=== PATIENT | female | born 1980 | race Caucasian/White ===

== ENCOUNTER 2017-08-21 11:53 | Emergency (ER) | payer OTHER ==
--- NOTE | 2017-08-21 12:23 | UC ---
Cardiac HPI - HPI Summary HPI Summary: 36 yrr old white female w/ h/o PEwho drove herself to our site d/t severe CP. She was en route to [place] from [place] and developed severe mid sternal chest pain that wprsened and she stopped at . Pain radiates into her back and going into abdomen. She vomited on herself in transit. 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 reports h/o renal embolization in 2013. -she reports that PEs were in 2003 and d/t unknown dx of tubular sclerosis in combination with control. -she denies being as she has mirena IUD. -denies calf tenderness and swelling - History of Current Complaint Chief Complaint: UCChestPain Stated Complaint: CHEST PAIN Time Seen by Provider: 08/21/17 12:09 Hx Last Menstrual Period: IUD Pain Intensity: 4 - Allergy/Home Medications Allergies/Adverse Reactions: Allergies Allergy/AdvReac Type Severity Reaction Status Date / Time hydromorphone [From Dilaudid] Allergy Unknown Verified 08/21/17 11:58 Reaction Details Penicillins Allergy Rash Verified 08/21/17 11:58 shellfish derived Allergy Anaphylatic Verified 08/21/17 11:58 Shock Home Medications: Home Medications ALPRAZolam [Alprazolam] 1 tab PO DAILY PRN 08/21/17 [History Confirmed 08/21/17] Everolimus [Afinitor] 5 mg PO DAILY 08/21/17 [History Confirmed 08/21/17] Lisinopril 1 tab PO DAILY 08/21/17 [History Confirmed 08/21/17] Rosuvastatin Calcium [Crestor] 1 tab PO DAILY 08/21/17 [History Confirmed ] busPIRone TAB* [Buspar TAB*] 7.5 mg PO DAILY 08/21/17 [History Confirmed ] PMH/Surg Hx/FS Hx/Imm Hx Previously Healthy: No - Tubular sclerosis, b/l angiomyolipomas. - Surgical History Surgical History: Yes Surgery Procedure, Year, and Place: Gallbladder; Appedectomy; Lap Emobolization of Kidney - Family History Known Family History: Positive: Other - denies fhx PEs - Social History Alcohol Use: Weekly Substance Use Type: None Smoking Status (MU): Light Every Day Tobacco Smoker Amount Used/How Often: 3-4cig/day Review of Systems Constitutional: Negative Skin: Negative Eyes: Negative ENT: Negative Respiratory: Negative Cardiovascular: Chest Pain - radiate to back Gastrointestinal: Abdominal Pain, Diarrhea Genitourinary: Negative Motor: Negative Neurovascular: Negative Musculoskeletal: Negative Neurological: Negative Psychological: Negative Is Patient Immunocompromised?: No All Other Systems Reviewed And Are Negative: Yes Physical Exam Triage Information Reviewed: Yes Appearance: Pain Distress - Pt is brought from waiting room in wheelchair. she is breathing heavily and moaning in pain and crying. Vital Signs: Initial Vital Signs Temp 97.8 F 08/21/17 12:02 Pulse 96 08/21/17 12:02 Resp 18 08/21/17 12:02 BP 179/121 08/21/17 12: Pulse Ox 100 08/21/17 12:02 Vital Signs Reviewed: Yes Eye Exam: Normal ENT Exam: Normal ENT: Positive: Pharynx normal Dental Exam: Normal Neck exam: Normal Neck: Positive: Supple, Nontender, No Lymphadenopathy Respiratory: Positive: Lungs clear, Normal breath sounds, Respiratory distress - breathing rapidly and heavily. Negative: Crackles, Rhonchi, Stridor, Wheezing Cardiovascular Exam: Normal Cardiovascular: Positive: RRR, No Murmur, Pulses Normal Abdomen Description: Positive: Soft, Other: - diffuse tenderness over entire abdomen, even resting the noyola of the stethescope on her abdomen made her wince in pain. exam is difficult due to cooperation. But I do not feel pulsatile mass. not rigd. soft. Bowel Sounds: Positive: Present Musculoskeletal Exam: Normal Neurological Exam: Normal Psychological Exam: Normal Skin Exam: Normal - Assessment/Plan Course Of Treatment: EKG - somewhat poor tracing. NSR, nml axis, no acute changes. Recommend pt go to ER based on history of PEs and severity of pain and risk of life thretening PEs & dissedction. She became very tearful when I receommended calling 911 to take her to the ER. At that point her breathing became more controlled and she stated that her pain is getting better and now and is down to 4/10 from 12/28. -IV hep lock started. -ASA 324mgs chewable given after s/w Yanique Rogel NP. -Pt reluctant to go to ER. She got off of the ambulance stretcher refusing to go. I spoke with her and discussed that she has tounderstand her risks of potential PE and aortic dissection that could both lead to severe complciations, permanent disablity, resp failure, inablity to work and potential . Witnesses were 3 ambulance staff and Valarie Monroe, GLADIS. she then agrees to go although she is clearly upset and prefers not to . I s/w Yanique Rogel ACCOUNTS COLLECTOR at [facility] (closest appropriate facility) who accepts pt. Notes and EKG will be faxed. - Differential Diagnoses - Chest Pain Differential Diagnosis/HQI/PQRI: Acute MS, ACS, Angina, Aortic Aneurysm, GI Disease, Pulmonary Embolism - Clinical Impression Provider Diagnoses: chest pain, abdominal pain - Physician Notifications Discussed Patient Care With: Yanique Rogel NP [facility] Time Discussed With Above Provider: 12:10 Discharge - Discharge Plan Condition: Fair Disposition: TRANS HIGHER LVL OF CARE FAC Referrals: Ant Angulo MD [Primary Care Provider] -
[2017-08-21] MEDS ORDERED: Aspirin Low Dose CHEW TAB* 81 MG PO ONE (12:25)
[2017-08-21 12:30] VITALS: BP 149/100
== END 2017-08-21 12:32 | disposition short-term general hospital (02) ==
LOC: UCCORT 11:53
DX: R07.9 Chest pain, unspecified (principal); R10.84 Generalized abdominal pain; F17.210 Nicotine dependence, cigarettes, uncomplicated; Z88.5 Allergy status to narcotic agent; Z88.0 Allergy status to penicillin; Z91.013 Allergy to seafood; Q85.1 Tuberous sclerosis; Z86.018 Personal history of other benign neoplasm
CPT/HCPCS: 93005; 99213; A9270-GY; G0463